=== PATIENT | female | born 1985 | race Caucasian/White ===

== ENCOUNTER → 2016-09-23 | Day surgery (SDC) | payer OTHER ==
[~2016-09-23] VITALS: Ht 162.6 cm; Wt 88.5 kg
[~2016-09-23] MED LIST: DIVALPROEX SOD500 M3 PO; NORCO 5-325 TA1 EACH PO; QUETIAPINE FUMA50 M1 PO
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
== END ==
LOC: STS 01:30
DX: S52.501A Unspecified fracture of the lower end of right radius, initial encounter for closed fracture (principal); M25.831 Other specified joint disorders, right wrist; Y04.0XXA Assault by unarmed brawl or fight, initial encounter
CPT/HCPCS: 36415; 81025; C1713; J0690; J2250